=== PATIENT | male | born 1965 | race Caucasian/White ===

== ENCOUNTER 2019-10-14 07:41 | Emergency (ER) | payer BC, SELFPAY ==
[~2019-10-14] VITALS: Ht 170.2 cm; Wt 72.6 kg
[2019-10-14 07:55] VITALS: BP 157/100
--- NOTE | 2019-10-14 07:58 | NUR ---
COVID SWAB DONE.
--- NOTE | 2019-10-14 08:01 | NUR ---
C/O FEVER,COUGH,WALTER,DIARRRHEA, LOSS OF SMELL X 1 WEEK. SON HAS COVID +. TEMP 97.8,P 84, R 18, O2SAT 98%, BP 157/100 AT THIS TIME. MED HX: HTN
--- NOTE | 2019-10-14 08:14 | NUR ---
Patient discharged with v/s stable. Written and verbal after care instructions given and explained. Patient verbalized understanding. Ambulatory with steady gait. All questions addressed prior to discharge. Advised to follow up with PMD.
[2019-10-14 08:15] VITALS: BP 157/100
== END 2019-10-14 08:14 | disposition home or self-care (01) ==
LOC: EEVIPCON 07:41 → MED 07:41
DX: R50.9 Fever, unspecified (principal); Z20.828 Contact with and (suspected) exposure to other viral communicable diseases; R05 Cough; R19.7 Diarrhea, unspecified; R51 Headache; I10 Essential (primary) hypertension
CPT/HCPCS: 99283; U0003